=== PATIENT | male | born 1985 | race Caucasian/White ===

== ENCOUNTER 2021-02-25 19:32 | Observation (INO) | payer BC, SELFPAY ==
--- NOTE | ~2021-02-25 | XR_ITS ---
EXAMINATION: XR chest 2V DATE: 02/25/2021 20:10 INDICATION: Shortness of breath. Left-sided chest pain. TECHNIQUE: PA and lateral views of the chest were obtained. COMPARISON: None FINDINGS: The lungs are clear with no focal airspace opacities, pulmonary edema, pleural effusion or pneumothor ax. The cardiomediastinal silhouette is normal. Visualized bones and soft tissues are unremarkable. IMPRESSION: 1. No acute cardiopulmonary disease. Reviewed, dictated and finalized at location A.
--- NOTE | 2021-02-25 19:34 | ECG_ITS ---
Measurements Intervals [place] Rate: 70 P: 45 ME: 146 QRS: 36 QRSD: 101 T: 29 QT: 382 QTc: 414 Interpretive Statements SINUS RHYTHM INCOMPLETE RIGHT BUNDLE BRANCH BLOCK BASELINE ARTIFACT- I, III, AVR, AVL, AVF BORDERLINE ECG Electronically Signed On 02-26-2021 7:10:20 CDT by Boyd Graff D.O.
[2021-02-25 19:36] VITALS: BP 152/89; PULSE 75; RESP 16; TEMP 36.5; O2SAT 100
[2021-02-25 19:54] LABS: Basophils Absolute Auto 0.1 K/mm3 (0.0-0.1); Basophils Percent Auto 0.9 % (0.2-1.2); Eosinophils Absolute Auto 0.1 K/mm3 (0-0.3); Eosinophils Percent Auto 1.5 % (0-4.4); Hematocrit 44.4 % (42.0-52.0); Hemoglobin 15.6 g/dL (14.0-18.0); Immature Granulocyte Absolute 0.01 K/mm3 (0.00-0.031); Immature Granulocyte Percent A 0.2 % (0-0.5); Lymphocytes Absolute Auto 2.34 K/mm3 (0.9-3.2); Lymphocytes Percent Auto 42.8 % (18.3-44.2); Mean Corpuscular HGB Conc 35.1 g/dl (32-36); Mean Corpuscular Hemoglobin 30.2 pg (26-34); Mean Corpuscular Volume 85.9 fl (80-100); Mean Platelet Volume 9.2 fl (7.4-10.4); Monocytes Absolute Auto 0.2 K/mm3 (0.1-0.6); Monocytes Percent Auto 3.7 % (2.6-8.5); Neutrophils Absolute Auto 2.8 K/mm3 (1.3-6.7); Neutrophils Percent Auto 50.9 % (45.5-73.1); Platelet Count Result 344 k/mm3 (150-375); Red Blood Count 5.17 M/mm3 (4.6-6.20); Red Cell Distribution Width 11.8 % (11.5-14.5); White Blood Count 5.5 K/mm3 (4.5-10.0)
[2021-02-25 20:02] LABS: Anion Gap 8 mmol/L (8-16); Blood Urea Nitrogen 14 mg/dL (9-20); Calcium 9.8 mg/dL (8.4-10.2); Carbon Dioxide 30 mmol/L (22-30); Chloride 103 mmol/L (98-107); Estimated CRCL calculation 120 ml/min; Estimated Glomerular Filt Rate > 60; Glucose 127 mg/dL (75-110); Potassium 4.1 mmol/L (3.4-5.0); Sodium 141 mmol/L (137-145)
[2021-02-25 20:04] LABS: INR 0.9; Prothrombin Time 12.6 Seconds (11.1-14.7)
[2021-02-25 20:06] LABS: Partial Thromboplastin Time 26.1 SECONDS (22.3-36.8)
[2021-02-25 20:14] LABS: Troponin I < 0.012 ng/mL (0.000-0.034)
[2021-02-25 23:11] VITALS: BP 156/109; PULSE 72; RESP 13; O2SAT 100
--- NOTE | 2021-02-25 23:28 | ED.CHESTPAIN ---
HPI - Chest Pain General Chief Complaint: Chest Pain Stated Complaint: chest pain -shortness of breath Time Seen by Provider: 02/25/21 23:26 Source: patient Mode of arrival: ambulatory Limitations: no limitations History of Present Illness HPI narrative: Patient is a 35-year-old male complaining of chest pain, midsternal, tightness, 6 out of 10, nonradiating accompanied by shortness of breath that started last night. Patient denies any abdominal pain, nausea, vomiting, diaphoresis, fever or chills. Patient states that he has a history of hypertension and aortic stenosis. Related Data Allergies Allergy/AdvReac Type Severity Reaction Status Date / Time Bumble Bee Allergy Intermediate Other Uncoded 02/25/21 19:33 Review of Systems Review of Systems: All systems reviewed & are unremarkable except as noted in HPI and below Constitutional: Constitutional: Denies body ache(s), Denies chills, Denies excessive sweating, Denies fatigue, Denies fever(s), Denies headache(s), Denies lethargy, Denies malaise, Denies weakness and Denies weight loss Eyes: Eyes: Denies blurry vision, Denies change in vision and Denies loss of vision ENT: Denies dizziness, Denies ear discharge, Denies headache(s), Denies lip swelling, Denies epistaxis, Denies nasal congestion, Denies neck pain, Denies throat swelling and Denies tongue swelling Cardiovascular: Cardiovascular: Denies diaphoresis, Denies rapid heart rate, Denies edema, Denies irregular heart rhythm, Denies lightheadedness, Denies palpitations, Denies dyspnea and Denies dyspnea on exertion Respiratory: Respiratory: Denies chest congestion, Denies cough, Denies hemoptysis, Denies dyspnea and Denies dyspnea on exertion Gastrointestinal: Gastrointestinal: Denies abdominal pain, Denies melena, Denies hematochezia, Denies diarrhea, Denies nausea, Denies vomiting and Denies hematemesis Musculoskeletal: Musculoskeletal: Denies abnormal gait, Denies deformity, Denies joint swelling, Denies limited range of motion, Denies neck pain and Denies numbness Neurologic: Denies Abnormal speech present, Denies abnormal gait, Denies confusion, Denies dizziness, Denies headache(s), Denies focal weakness, Denies loss of vision, Denies numbness, Denies Other visual disturbances, Denies Sensory deficit (Neuro) and Denies weakness Psychiatric: Psychiatric: Denies confusion, Denies depression, Denies auditory hallucinations, Denies homicidal ideation and Denies suicidal ideation Endocrine: Endocrine: Denies cold intolerance, Denies excessive sweating, Denies fatigue, Denies heat intolerance and Denies palpitations Hematologic/Lymphatic: Hematologic/Lymphatic: Denies easy bleeding and Denies easy bruising Allergic/Immunologic: Allergic/Immunologic: Denies lip swelling, Denies throat swelling and Denies tongue swelling PMFSH Comments Past medical history: Hypertension, aortic stenosis Family history: Negative for coronary disease or [place] Social history: Non-smoker no EtOH or drug use. Course Vital Signs Vital signs: Vital Signs Temperature 36.5 C 02/25/21 19:36 Pulse Rate 75 02/25/21 19:36 Respiratory Rate 16 02/25/21 19:36 Blood Pressure 152/89 H 02/25/21 19:36 Pulse Oximetry 100 02/25/21 19:36 Temperature 36.5 C 02/25/21 19:36 Pulse Rate 55 L 02/26/21 00:44 Respiratory Rate 13 02/26/21 00:44 Blood Pressure 145/108 H 02/26/21 00:44 Pulse Oximetry 100 02/26/21 00:44 MDM - Chest Pain Differential Diagnosis Differential diagnosis: Likely stable angina, atypical chest pain, costochondritis and chest pain Lab Data Attestation: I reviewed the patient's lab results. Result diagrams: 02/25/21 19:45 02/25/21 19:45 Labs: Lab Results 02/25/21 02/25/21 02/25/21 Range/Units 19:45 19:45 19:45 WBC 5.5 (4.5-10.0) K/mm3 RBC 5.17 (4.6-6.20) M/mm3 Hgb 15.6 (14.0-18.0) g/dL Hct 44.4 (42.0-52.0) % MCV 85.9 (80-100) fl MCH 30.2 (26-34) p
[2021-02-26] VITALS (11 sets, daily range): BP systolic 119–145; BP diastolic 76–108; PULSE 55–78; RESP 13–20; TEMP 36.3–36.6; O2SAT 96–100; BMI 33.6
[2021-02-26 00:05] LABS: Troponin I < 0.012 ng/mL (0.000-0.034)
[2021-02-26] MEDS: ASPIRIN 81 MG CHEWABLE TABLET 324 MG PO (00:24)
[2021-02-26] MEDS: NITROGLYCERIN SL 0.4 MG TABLET SUBLINGUAL (00:58)
--- NOTE | 2021-02-26 00:58 | PC.NURSE ---
Gave one Nitro 0.4 tablet per ERP order for chest tightness. Pt states tightness relieved after 1 tablet.
[2021-02-26 02:55] LABS: Troponin I < 0.012 ng/mL (0.000-0.034)
--- NOTE | 2021-02-26 09:03 | PM.IMHP ---
H&P: HPI History of Present Illness Date/Time: 02/26/21 09:03 35 y/o male with h/o HTN, ?valve disease and obesity who presented with chest pain He reports chest pain started Tuesday night,felt like heaviness and squeezing. pain persisted through Tuesday and he noticed more when he leans forward while at his desk at work. His eventually convince him to seek medical attention. He admits to occasional dyspnea long with chest pain. Denies nausea or diaphoresis but feels hot flush sensation in the face. He feels better this morning and chest pain has resolved. His EKG shows normal sinus rhythm with no ischemic changes. His troponin is negative X3 He was seen by cardiology as a kid for a murmur and was seen last about 5 years ago. At that time he recall being told that he may have aortic stenosis although he was reassured from this condition never smoker Grandfather had PR at relatively young age. Father and mother alive with no heart disease Chief Complaint: chest pain Review of Systems Review of Systems: All systems reviewed & are unremarkable except as noted in HPI and below Constitutional: Constitutional: Denies fatigue and Denies headache(s) Eyes: Eyes: Denies blurry vision ENT: Reports Normal hearing present and Denies headache(s) Cardiovascular: Cardiovascular: Denies chest pain, Denies diaphoresis, Denies pedal edema, Denies leg edema, Denies lightheadedness, Denies palpitations and Denies dyspnea Respiratory: Respiratory: Denies cough and Denies dyspnea Gastrointestinal: Gastrointestinal: Denies abdominal pain Musculoskeletal: Musculoskeletal: Denies back pain Neurologic: Reports Normal hearing present and Denies headache(s) Psychiatric: Psychiatric: Denies anxiety Endocrine: Endocrine: Denies fatigue and Denies palpitations [facility] Family History Family History (Updated 02/26/21 @ 02:46 by Adina Reno RN) Sibling Hypertension Father Elevated cholesterol Social History Social History Smoking status: Never smoker Alcohol intake: current Substance use type: does not use Spiritual care concerns: No Meds Home Medications and Allergies Home Medications Medication Instructions Recorded Confirmed Type lisinopril 10 mg PO DAILY 02/26/21 02/26/21 History Allergies Allergy/AdvReac Type Severity Reaction Status Date / Time Bumble Bee Allergy Intermediate Other Uncoded 02/25/21 19:33 Vital Signs Vital Signs - 24 hr 02/25/21 19:36 02/25/21 23:11 02/26/21 00:44 Temperature 36.5 C Pulse Rate 75 72 55 L Respiratory Rate 16 13 13 Blood Pressure 152/89 H 156/109 H 145/108 H Pulse Oximetry 100 100 100 02/26/21 01:25 02/26/21 01:40 02/26/21 02:05 Temperature 36.5 C Pulse Rate 59 L 58 L 62 Respiratory Rate 13 17 20 Blood Pressure 145/98 H 134/78 119/88 Pulse Oximetry 100 98 99 02/26/21 02:40 02/26/21 04:00 02/26/21 08:00 Temperature 36.3 C L Pulse Rate 68 56 L 68 Respiratory Rate 14 Blood Pressure 133/76 Pulse Oximetry 96 02/26/21 08:59 Temperature Pulse Rate 78 Respiratory Rate Blood Pressure Pulse Oximetry Exam Const: General: no acute distress Eyes: Sclera: sclerae normal Neck: Neck: no JVD Carotids: no bruits Resp: Effort & Inspection: normal respiratory effort Auscultation: clear to auscultation bilaterally Cardio: Rate: regular rate and not tachycardic Rhythm: regular rhythm Heart sounds: no gallops, no murmurs and no rubs GI: GI Palp: Yes Soft to palpation and No Tenderness to palpation present (GI) Skin: General skin exam: normal color Neuro: Cranial nerves: Yes Normal hearing present Speech: normal speech Extrem: General: normal to inspection and no edema Psych: Affect: normal affect H&P: Results Labs Labs: Short CBC 02/25/21 Range/Units 19:45 WBC 5.5 (4.5-10.0) K/mm3 Hgb 15.6 (14.0-18.0) g/dL Hct 44.4 (42.0-52.0) % Plt Count 344 (150-375) k/mm3 BMP
--- NOTE | 2021-02-26 09:12 | ECHO_ITS ---
Patient Info Name: Andrea Durham Age: 35 years : 1985 Gender: Male Ht: 72 in Wt: 248 lbs BSA: 2.43 m2 HR: 64 bpm BP: 133 / 76 mmHg Technical Quality: Good Exam Date: 02/26/2021 11:09 AM Exam Location: [facility] Patient Status: Inpatient Admit Date: 02/26/2021 Staff Ordering Physician: Caty Baig MD (rosana/arsalan) Clerical Clerk: Gricel Paredes RDCS Attending Provider: Caty Baig MD (rosana/linh) Exam Type: CA echo doppler color flow Study Info Indications R07.9 - Chest pain, unspecified Complete two-dimensional, color flow and Doppler transthoracic echocardiogram is performed. Summary 1. Complete two-dimensional, color flow and Doppler transthoracic echocardiogram is performed. 2. Left ventricular chamber dimension is normal. 3. Left ventricular systolic function is normal, estimated at 65-70%. 4. There is mild discrete upper septal thickening with minimal increase in LVOT velocity LVOT velocity 1.8 m/s, mean gradient 9. No significant change in LVOT velocity/gradient with valsalva maneuver. 5. The aortic valve is trileaflet. 6. There is no aortic valve stenosis. 7. The mitral valve has normal leaflets. 8. There is no mitral valve regurgitation. 9. There is no tricuspid valve regurgitation. 10. Normal inferior vena cava with >50% collapse upon inspiration. 11. There is no pericardial effusion. Left Ventricle Left ventricular chamber dimension is normal. Left ventricular systolic function is normal, estimated at 65-70%. There is mild discrete upper septal thickening with minimal increase in LVOT velocity LVOT velocity 1.8 m/s, mean gradient 9. No significant change in LVOT velocity/gradient with valsalva maneuver. Left ventricular septal wall motion is normal. The left ventricular diastolic function is normal. Right Ventricle Right ventricular chamber dimension is normal. Right ventricular systolic function is normal. Left Atria Left atrial chamber dimension is normal. Right Atria Right atrial chamber dimension is normal. Aortic Valve The aortic valve is trileaflet. There is no aortic valve sclerosis. There is no aortic valve stenosis. There is no aortic valve regurgitation. Pulmonic Valve The pulmonic valve is normal. There is no pulmonic valve stenosis. There is no pulmonic regurgitation. Mitral Valve The mitral valve has normal leaflets. There is no mitral valve stenosis. There is no mitral valve regurgitation. Tricuspid Valve The tricuspid valve leaflets are normal. There is no significant tricuspid valve stenosis. There is no tricuspid valve regurgitation. No pulmonary hypertension, estimated pulmonary arterial systolic pressure is 24 mmHg. Pericardium/Pleural The pericardium appears normal. There is no pericardial effusion. Inferior Vena Cava Normal inferior vena cava with >50% collapse upon inspiration. Aorta The aortic root size at the sinus of Valsalva is normal. The prox ascending aorta size is normal. Left Ventricular Outflow Tract Name Value Normal LVOT 2D LVOT Diameter 2.0 cm LVOT Doppler LVOT Peak Gradient
[2021-02-26] MEDS: lisinopriL 10 MG TABLET PO (10:11)
--- NOTE | 2021-02-26 12:25 | PM.DS ---
DS: Admitting Diagnosis Admitting Diagnosis Admitting Diagnosis: Chest pain DS: Discharge Diagnosis Discharge Diagnosis (1) Chest pain: Qualifiers: Chest pain type: unspecified Qualified Code(s): R07.9 - Chest pain, unspecified Code(s): R07.9 - Chest pain, unspecified Status: Acute Assessment and Plan: 35 y/o male with h/o HTN and possible valvular disease who presents with chest pain Pain is positional and atypical for angina. He ruled out with EKG and troponin 2D echocardiogram (2) Heart valve disease: Code(s): I38 - Endocarditis, valve unspecified Status: Acute Assessment and Plan: per patient, 2D echo with no significant valvular disease (3) Hypertension: Qualifiers: Hypertension type: essential hypertension Qualified Code(s): I10 - Essential (primary) hypertension Code(s): I10 - Essential (primary) hypertension Status: Acute Assessment and Plan: Resume Lisinopril DS: Summary Hospital Course Hospital Course: Refer to HPI Time Spent with Patient Time attestation: Total time spent providing and/or coordinating discharge services: Exam Const: General: no acute distress Eyes: Sclera: sclerae normal Neck: Neck: no JVD Carotids: no bruits Resp: Effort & Inspection: normal respiratory effort Auscultation: clear to auscultation bilaterally Cardio: Rate: regular rate and not tachycardic Rhythm: regular rhythm Heart sounds: no gallops, no murmurs and no rubs Skin: General skin exam: normal color Neuro: Cranial nerves: Yes Normal hearing present Speech: normal speech Extrem: General: normal to inspection and no edema Psych: Affect: normal affect DS: Data Data Completed and Pending Labs on day of discharge: Labs from last 24 hours 02/26/21 02/25/21 02/25/21 02:14 23:36 19:45 WBC RBC Hgb Hct MCV MCH MCHC RDW Plt Count MPV Immature Gran % (Auto) Neut % (Auto) Lymph % (Auto) Frontier % (Auto) Eos % (Auto) Baso % (Auto) Lymph # (Auto) Frontier # (Auto) Eos # (Auto) Baso # (Auto) Abs Immat Gran (auto) Absolute Neuts (auto) Absolute Nucleated RBC Nucleated RBC % PT INR APTT Sodium 141 Potassium 4.1 Chloride 103 Carbon Dioxide 30 Anion Gap 8 BUN 14 Creatinine 1.00 Estim Creat Clear Calc 120 Estimated GFR > 60 Glucose 127 H Calcium 9.8 Troponin I < 0.012 < 0.012 < 0.012 02/25/21 02/25/21 19:45 19:45 WBC 5.5 RBC 5.17 Hgb 15.6 Hct 44.4 MCV 85.9 MCH 30.2 MCHC 35.1 RDW 11.8 Plt Count 344 MPV 9.2 Immature Gran % (Auto) 0.2 Neut % (Auto) 50.9 Lymph % (Auto) 42.8 Frontier % (Auto) 3.7 Eos % (Auto) 1.5 Baso % (Auto) 0.9 Lymph # (Auto) 2.34 Frontier # (Auto) 0.2 Eos # (Auto) 0.1 Baso # (Auto) 0.1 Abs Immat Gran (auto) 0.01 Absolute Neuts (auto) 2.8 Absolute Nucleated RBC 0.0 Nucleated RBC % 0.0 PT 12.6 INR 0.9 APTT 26.1 Sodium Potassium Chloride Carbon Dioxide Anion Gap BUN Creatinine Estim Creat Clear Calc Estimated GFR Glucose Calcium Troponin I Discharge Plan Discharge Attending physician on discharge: Caty Baig Discharging Clinician: Caty Baig Patient Disposition: Home, Self-Care Activity: as tolerated Diet: as tolerated Patient Instructions: Antibiotic Form, Chest Pain (DC), Chronic Hypertension (DC) Stand Alone Forms: General Discharge Information Follow-up/Referrals: Caty Baig MD [Physician] - (in 1-2 weeks ) Discharge Medications: Continued lisinopril 10 mg tablet 10 mg PO DAILY RF: 0 Date of admission: 02/26/21 00:50 Primary Care Provider: Krzysztof,Geovany Admitting Provider: Caty Baig Attending physician on admission: Caty Baig Condition: Improved Quality VTE Prophylaxis VTE prophylaxis: pharm
== END 2021-02-26 13:05 | disposition home or self-care (01) ==
LOC: ANHED 02-26 00:54 → ANHIMU 02-26 01:21 → ANH2MED 02-26 01:50 → ANHIMU 02-26 01:51
PROVIDERS: Emergency Medicine; Admitting Provider Internal Medicine; Emergency Provider Emergency Medicine; PCP Internal Medicine; Visit Provider Internal Medicine
DX: R07.9 Chest pain, unspecified (principal); I38 Endocarditis, valve unspecified; I10 Essential (primary) hypertension; R06.02 Shortness of breath
CPT/HCPCS: 36415; 71046; 80048; 84484; 85025; 85610; 85730; 93005; 93306; 99285; A9270; G0378

== ENCOUNTER 2021-07-24 01:07 | Day surgery (SDC) | payer BC, SELFPAY ==
[2021-06-29 14:02] VITALS: BMI 35.2
[2021-07-10 14:33] VITALS: BMI 35.2
[2021-07-24 11:24] VITALS: BP 158/109; PULSE 85; RESP 16; TEMP 36.2; O2SAT 100; BMI 35.6
[2021-07-24] MEDS: LACTATED RINGERS 1,000 ML 150 ML IV CONT (11:32)
--- NOTE | 2021-07-24 11:32 | P.CONGI_ITS ---
Assessment and Plan Assessment and plan (1) LUQ abdominal pain: Code(s): R10.12 - Left upper quadrant pain Status: Acute Assessment and Plan: Left upper quadrant abdominal pain of uncertain etiology for this reason EGD will be performed to assess more thoroughly. GI Consult Note Consult date/time: 07/24/21 11:32 HPI: Andrea Durham is a 35 year old male Presents for EGD. Patient removed reports several month history of left upper quadrant abdominal pain. He reports no specific trauma that precipitated this. He states it does not change with eating. It does intensify with sitting in a hunched over position such as driving a car. He denies any bleeding or weight loss. His appetite has remained stable. He returned presents today for EGD to assess more thoroughly. Further recommendations will be given after endoscopy. Patient reports the abdominal pain is lessened over recent weeks. His much more tolerable now than it had been. Review of Systems Review of Systems: All systems reviewed & are unremarkable except as noted in HPI and below PMFSH Past Medical History Medical History (Updated 07/24/21 @ 11:33 by Valerio Hankins MD) Aortic stenosis Hypertension Family History Family History (Updated 02/26/21 @ 02:46 by Adina Reno RN) Sibling Hypertension Father Elevated cholesterol Social History Social History Smoking status: Never smoker Alcohol intake: current Drinks per week: 8 Substance use type: does not use Living arrangements: with family Spiritual care concerns: No Meds Home Medications and Allergies Home Medications Medication Instructions Recorded Confirmed Type lisinopril 10 mg PO DAILY 02/26/21 06/29/21 History Allergies Allergy/AdvReac Type Severity Reaction Status Date / Time Bumble Bee Allergy Intermediate Other Uncoded 07/24/21 11:23 Vital Signs Vital Signs - 24 hr 07/24/21 11:24 Temperature 97.1 F L Pulse Rate 85 Respiratory Rate 16 Blood Pressure 158/109 H Pulse Oximetry 100 Exam Narrative: Physical exam reveals patient to be alert. Vital signs stable. HEENT exam is unremarkable. Patient is anicteric. Lungs are clear to auscultation and percussion. Heart is without murmur or extra sounds. Abdomen bowel sounds present soft no palpable tenderness evident. No masses noted. Ex tremities are without clubbing cyanosis or edema.
--- NOTE | 2021-07-24 12:10 | P.PNAN_ITS ---
Anes - Initial Pre Proc Eval Procedure: Operation Date: 07/24/21 13:30 Proposed Procedures p Esophagogastroduodenoscopy - Valerio Hankins MD Date/Time: 07/24/21 12:10 Surgeon: Valerio Hankins MD Pre Op Diagnosis: abdominal pain Patient Data Age: 35 Gender: M Height: 1.83 m Weight: 119.3 kg Last Vital Signs Temp 97.1 F L 07/24/21 11:24 Pulse 85 07/24/21 11:24 Resp 16 07/24/21 11:24 BP 158/109 H 07/24/21 11:24 Pulse Ox 100 07/24/21 11:24 Allergies Allergy/AdvReac Type Severity Reaction Status Date / Time Bumble Bee Allergy Intermediate Other Uncoded 07/24/21 11:23 Home Medications Medication Instructions Recorded Confirmed Type lisinopril 10 mg PO DAILY 02/26/21 06/29/21 History Patient hx anesthesia problems: none Family hx anesthesia problems: none Results Review: All pre-operative results and documents have been reviewed as part of the pre-operative evaluation. [facility] Past Medical History Medical History (Updated 07/24/21 @ 11:33 by Valerio Hankins MD) Aortic stenosis Hypertension Family History Family History (Updated 02/26/21 @ 02:46 by Adina Reno RN) Sibling Hypertension Father Elevated cholesterol Social History Social History Smoking status: Never smoker Alcohol intake: current Drinks per week: 8 Substance use type: does not use Living arrangements: with family Spiritual care concerns: No Anes - Eval Final PreProcedure Day of Procedure 07/24/21 12:10 Patient weight: obese Heart: regular rate and rhythm Lungs: clear to auscultation Airway: Mallampati scale class II Neurological: alert and oriented Last oral intake: >/= 8 hours ASA classification: III Emergent: no Anesthetic plan: proceed Anesthesia type and monitoring: general GIVS and standard monitoring Results Review: All pre-operative results and documents have been reviewed as part of the pre-operative evaluation. Informed Consent: The patient's anesthetic plan and its attendant risks and benefits were discussed with the patient/family/POA. Questions were solicited and answers provided to the satisfaction of the patient/family/POA.
[2021-07-24 12:22] VITALS: BP 123/80; PULSE 90; RESP 21; O2SAT 99
[2021-07-24 12:32] VITALS: BP 136/90; PULSE 75; RESP 21; O2SAT 97
[2021-07-24 12:42] VITALS: BP 138/95; PULSE 66; RESP 17; O2SAT 98
== END 2021-07-24 13:00 | disposition home or self-care (01) ==
PROVIDERS: PCP Internal Medicine; Visit Provider Internal Medicine Gastroenterology
PROC: 0DJ08ZZ Inspection of Upper Intestinal Tract, Via Natural or Artificial Opening Endoscopic (ICD-10-PCS; CPT 43235; principal; 2021-07-24 13:30)
DX: R10.12 Left upper quadrant pain (principal); I10 Essential (primary) hypertension; I35.0 Nonrheumatic aortic (valve) stenosis; E66.9 Obesity, unspecified; Z68.35 Body mass index [BMI] 35.0-35.9, adult
CPT/HCPCS: 43239; 87081; J2001; J2704; J7120

== ENCOUNTER 2022-09-07 10:14 | Outpatient (CLI) | payer BC, SELFPAY ==
[2022-09-07 10:31] LABS: Mean Corpuscular HGB Conc 35.7 g/dl (32-36); Mean Corpuscular Hemoglobin 29.6 pg (26-34); Platelet Count Result 378 k/mm3 (150-375); Red Blood Count 5.06 M/mm3 (4.6-6.20); Red Cell Distribution Width 12.2 % (11.5-14.5)
[2022-09-07 10:43] LABS: Alanine Aminotransferase 48 U/L (6-50); Alkaline Phosphatase 54 U/L (38-126); Amylase 69 U/L (30-110); Anion Gap 11 mmol/L (8-16); Aspartate Amino Transferase 46 U/L (17-59); Bilirubin,Total 0.8 mg/dL (0.2-1.3); Blood Urea Nitrogen 13 mg/dL (9-20); Calcium 9.4 mg/dL (8.4-10.2); Carbon Dioxide 25 mmol/L (22-30); Chloride 101 mmol/L (98-107); Estimated Glomerular Filt Rate > 60; Glucose 99 mg/dL (65-110); Lipase 87 U/L (23-300); Potassium 3.9 mmol/L (3.4-5.0); Sodium 137 mmol/L (137-145)
== END 2022-09-07 10:15 | disposition home or self-care (01) ==
LOC: ANHLAB 10:15
PROVIDERS: PCP Internal Medicine; Visit Provider Nurse Practitioner
DX: R10.12 Left upper quadrant pain (principal)
CPT/HCPCS: 36415; 80053; 82150; 83690; 85027

== ENCOUNTER 2022-09-20 07:36 | Outpatient (CLI) | payer BC, SELFPAY ==
--- NOTE | ~2022-09-20 | NM_ITS ---
EXAMINATION: NM hepatobiliary wo pharm DATE: 09/20/2022 10:24 DERMATOLOGY PHYSICIAN INDICATION: Intermittent epigastric pain. Left upper quadrant pain. COMPARISON: None. TECHNIQUE: 5 mCi Tc-99m mebrofenin (Choletec) was administered intravenously. Scintigraphic images o f the abdomen were obtained for one hour. At the 1 hour time point, the patient drank 8 oz Ensure, an d imaging was continued for 60 minutes. Gallbladder ejection fraction was calculated by the technolog ist. FINDINGS: There is normal clearance of radiotracer from the blood pool. There is homogeneous tracer u ptake by the liver. Activity progresses to the bowel and gallbladder. The gallbladder ejection fract ion is 73%. Note that with this technique, normal GBEF >= 33%. IMPRESSION: 1. Normal hepatobiliary scan. Reviewed, dictated and finalized at location B. ATOLOGY PHYSICIAN
== END 2022-09-20 07:37 | disposition home or self-care (01) ==
PROVIDERS: PCP Internal Medicine; Visit Provider Nurse Practitioner
DX: R10.12 Left upper quadrant pain (principal)
CPT/HCPCS: 78226; A9537

== ENCOUNTER 2022-10-08 01:56 | Day surgery (SDC) | payer BC, SELFPAY ==
[2022-09-29 14:45] VITALS: BMI 35.2
[2022-10-08 12:02] VITALS: BP 115/113; PULSE 82; RESP 20; TEMP 36.5; O2SAT 98
[2022-10-08] MEDS: LACTATED RINGERS 1,000 ML 150 ML IV CONT (12:11)
--- NOTE | 2022-10-08 12:23 | PM.HPGS ---
History of Present Illness History of Present Illness Consent: Risks, benefits, and alternatives have been discussed and questions answered. Patient agrees to proceed with procedure. Chief complaint: hemorrhoid Narrative: Andrea Durham is a 36 year old male Presents for flexible sigmoidoscopy. Patient reports that many years ago he was told he had a growth at the rectal area. States he occasionally feels a little tag when wiping. Recent evaluation by CUSTOMER RELATIONS ADVISOR in the office suggested hemorrhoids. A flexible sigmoidoscopy was requested. Patient denies any pain. He states quite sometime ago he may had a small amount of bright red blood per rectum but none recently. Additionally continues to have brief episodes of left upper quadrant pain. GI workup to date has been negative. Review of Systems Review of Systems: Review of systems noncontributory. [facility] Past Medical History Medical History (Updated 10/08/22 @ 12:25 by Valerio Hankins MD) Aortic stenosis Epigastric abdominal pain Fatty liver Hypertension Obesity (BMI 30-39.9) Family History Family History Sibling Hypertension Father Elevated cholesterol Social History Social History Smoking status: Never smoker Alcohol intake: current Drinks per week: 6 Substance use: never Substance use type: does not use Living arrangements: with family Spiritual care concerns: No Meds Home Medications and Allergies Home Medications Medication Instructions Recorded Confirmed Type lisinopril 10 mg tablet 10 mg PO DAILY 02/26/21 09/29/22 History Allergies Allergy/AdvReac Type Severity Reaction Status Date / Time Bumble Bee Allergy Intermediate Swelling Uncoded 10/08/22 12:01 of Lip/Tongue/Throat Vital Signs Vital Signs - 24 hr 10/08/22 12:02 Temperature 97.7 F Pulse Rate 82 Respiratory Rate 20 Blood Pressure 115/113 H Pulse Oximetry 98 Oxygen Delivery Room Air Exam Narrative: Physical exam reveals patient be alert. Vital signs stable. HEENT exam unremarkable. Patient is anicteric. Lungs are clear. Heart without murmur. Abdomen bowel sounds present soft nontender with no organomegaly. Digital rectal exam with no obvious external lesions. Assessment and Plan Assessment and plan (1) Hemorrhoid: Code(s): K64.9 - Unspecified hemorrhoids Status: Acute Assessment and Plan: patient found to have a hemorrhoid on recent exam. Flex sig was advised because of patient's concerns. Further recommendations may be given after endoscopy. High-fiber diet fiber supplements as necessary are encouraged. May benefit from preparation H intermittently if it becomes uncomfortable. Currently has no complaints of pain nor bleeding. (2) LUQ abdominal pain: Code(s): R10.12 - Left upper quadrant pain Status: Acute Assessment and Plan: Patient has had intermittent brief bouts of left upper quadrant pain. GI workup to date has been negative. Because of the brevity of this pain suspected may be spastic in nature. He can continue to follow-up with CUSTOMER RELATIONS ADVISOR in the office as scheduled.
--- NOTE | 2022-10-08 12:34 | WPDANESEPPF ---
Anes - Initial Pre Proc Eval Procedure: Operation Date: 10/08/22 13:15 Proposed Procedures p Flexible Sigmoidoscopy - Valerio Hankins MD Date/Time: 10/08/22 12:34 Surgeon: Valerio Hankins MD Pre Op Diagnosis: hemorrhoid Patient Data Age: 36 Gender: M Height: 1.83 m Weight: 118.3 kg Last Vital Signs Temp 97.7 F 10/08/22 12:02 Pulse 82 10/08/22 12:02 Resp 20 10/08/22 12:02 BP 115/113 H 10/08/22 12:02 Pulse Ox 98 10/08/22 12:02 O2 Del Method Room Air 10/08/22 12:02 Allergies Allergy/AdvReac Type Severity Reaction Status Date / Time Bumble Bee Allergy Intermediate Swelling Uncoded 10/08/22 12:01 of Lip/Tongue/Throat Home Medications Medication Instructions Recorded Confirmed Type lisinopril 10 mg tablet 10 mg PO DAILY 02/26/21 09/29/22 History Patient hx anesthesia problems: none Family hx anesthesia problems: none Results Review: All pre-operative results and documents have been reviewed as part of the pre-operative evaluation. [facility] Past Medical History Medical History (Updated 10/08/22 @ 12:25 by Valerio Hankins MD) Aortic stenosis Epigastric abdominal pain Fatty liver Hypertension Obesity (BMI 30-39.9) Family History Family History Sibling Hypertension Father Elevated cholesterol Social History Social History Smoking status: Never smoker Alcohol intake: current Drinks per week: 6 Substance use: never Substance use type: does not use Living arrangements: with family Spiritual care concerns: No Anes - Eval Final PreProcedure Day of Procedure 10/08/22 12:34 Patient weight: normal Heart: regular rate and rhythm Lungs: clear to auscultation Airway: Mallampati scale class II Neurological: alert and oriented Last oral intake: >/= 8 hours ASA classification: III Emergent: no Anesthetic plan: proceed Anesthesia type and monitoring: general GIVS and standard monitoring Results Review: All pre-operative results and documents have been reviewed as part of the pre-operative evaluation. Informed Consent: The patient's anesthetic plan and its attendant risks and benefits were discussed with the patient/family/POA. Questions were solicited and answers provided to the satisfaction of the patient/family/POA.
[2022-10-08 13:18] VITALS: BP 133/86; PULSE 74; RESP 20; O2SAT 97
[2022-10-08 13:28] VITALS: BP 144/94; PULSE 68; RESP 20; O2SAT 96
[2022-10-08 13:38] VITALS: BP 143/99; PULSE 69; RESP 22; O2SAT 99
== END 2022-10-08 13:48 | disposition home or self-care (01) ==
PROVIDERS: PCP Internal Medicine; Visit Provider Internal Medicine Gastroenterology
PROC: 0DJD8ZZ Inspection of Lower Intestinal Tract, Via Natural or Artificial Opening Endoscopic (ICD-10-PCS; CPT 45330; principal; 2022-10-08 13:15)
DX: K64.8 Other hemorrhoids (principal); R10.12 Left upper quadrant pain; I10 Essential (primary) hypertension
CPT/HCPCS: 45330; J2704; J7120

== ENCOUNTER 2023-05-06 15:27 | Emergency (ER) | payer BC, SELFPAY ==
--- NOTE | ~2023-05-06 | XR_ITS ---
EXAMINATION: XR tibia fibula RT 2V DATE: 05/06/2023 17:04 INDICATION: Right lower leg foreign body. TECHNIQUE: 2 views of right tibia and fibula on 4 radiographs were obtained. COMPARISON: None. FINDINGS: Bone alignment is normal. No fracture. 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 Joint sp aces are normal. No knee joint effusion. IMPRESSION: 1. No radiopaque foreign body. Reviewed, dictated and finalized at location A.
[2023-05-06 15:29] VITALS: BP 170/101; PULSE 73; RESP 18; TEMP 35.8; O2SAT 99
--- NOTE | 2023-05-06 17:02 | ED.GENADULT ---
HPI - General Adult General Chief complaint: Wound/Laceration Stated complaint: Lower leg lac Time Seen by Provider: 05/06/23 16:36 Source: patient Mode of arrival: ambulatory Limitations: no limitations History of Present Illness HPI narrative: This is a 37-year-old male who presents to the ED with chief complaint of a puncture wound injury that occurred a few hours prior to arrival. Patient states that he was out in his yard mowing the grass when he went over an electrical wire. He states the wire popped up and hit him in the right calf. He reports immediate dark red blood bleeding which concerned him. He reports a little bit of swelling but overall is pain-free. Denies any further site of pain or injury. Related Data Home Medications Medication Instructions Recorded Confirmed lisinopril 10 mg tablet 10 mg PO DAILY 02/26/21 09/29/22 Allergies Allergy/AdvReac Type Severity Reaction Status Date / Time Bumble Bee Allergy Intermediate Swelling Uncoded 10/08/22 12:01 of Lip/Tongue/Throat PMFSH Past Medical History Medical History (Updated 05/06/23 @ 17:16 by John Kraft PA-C) Aortic stenosis Epigastric abdominal pain Fatty liver Hypertension Obesity (BMI 30-39.9) Family History Family History Sibling Hypertension Father Elevated cholesterol Social History Social History Smoking status: Never smoker Alcohol intake: current Drinks per week: 6 Substance use: never Substance use type: does not use Living arrangements: with family Spiritual care concerns: No Exam Narrative: GENERAL: Well-appearing, well-nourished, and in no acute distress. HEAD: Normocephalic, atraumatic. EYES: PERRLA and EOMI. ENT: Nares clear, no rhinorrhea or epistaxis. Mucous membranes moist. Oropharynx without tonsillar hypertrophy exudate or other lesions. NECK: Supple. No adenopathy or masses. CHEST: No respiratory distress. Clear to auscultation. No wheezes rales or rhonchi HEART: Regular rate and rhythm. No murmur heard. Normal peripheral pulses. ABDOMEN: Soft, nontender, nondistended, normal active bowel sounds. MSK: Normal range of motion. No edema. SKIN: Right calf with crusted over puncture wound lesion. No surrounding bruising. Mild swelling. Neurovascularly intact distally. NEURO: Alert and oriented x3. No focal deficits. PSYCH: Normal mood and affect. Course Vital Signs Vital signs: Vital Signs Temperature 96.5 F L 05/06/23 15:29 Pulse Rate 73 05/06/23 15:29 Respiratory Rate 18 05/06/23 15:29 Blood Pressure 170/101 H 05/06/23 15:29 Pulse Oximetry 99 05/06/23 15:29 Oxygen Delivery Room Air 05/06/23 15:29 Temperature 96.5 F L 05/06/23 15:29 Pulse Rate 73 05/06/23 15:29 Respiratory Rate 18 05/06/23 15:29 Blood Pressure 170/101 H 05/06/23 15:29 Pulse Oximetry 99 05/06/23 15:29 Oxygen Delivery Room Air 05/06/23 15:29 Medical Decision Making MDM Narrative Medical decision making narrative: This is a 37-year-old male who presents to the ED with chief complaint of a puncture wound to the right lower leg. this occurred while mowing the lawn today. Vitals are normal. Exam shows a very small crusted over wound site to the right lower leg. No active bleeding. No surrounding swelling or bruising. Overall exam is intact. X-rays do not reveal any foreign bodies or acute osseous findings. He will be discharged in stable condition. Prescription for Keflex given for prophylaxis. Return precautions given and supportive measures for home discussed. He is understanding and agreeable with plan for discharge and follow-up with PCP. Vital Signs Vital Signs: Vital Signs Temperature 96.5 F L 05/06/23 15:29 Pulse Rate 73 05/06/23 15:29 Respiratory Rate 18 05/06/23 15:29 Blood Pressure 170/101 H 05/06/23 15:29 Pu
== END 2023-05-06 17:43 | disposition home or self-care (01) ==
PROVIDERS: Emergency Provider Physician Assistant; PCP Internal Medicine
DX: S81.831A Puncture wound without foreign body, right lower leg, initial encounter (principal); I35.0 Nonrheumatic aortic (valve) stenosis; I10 Essential (primary) hypertension; E66.9 Obesity, unspecified; Z68.33 Body mass index [BMI] 33.0-33.9, adult; W20.8XXA Other cause of strike by thrown, projected or falling object, initial encounter
CPT/HCPCS: 73590; 99283

== ENCOUNTER 2023-12-05 17:08 | Emergency (ER) | payer BC, SELFPAY ==
--- NOTE | ~2023-12-05 | US_ITS ---
EXAMINATION: US scrotum doppler DATE: 12/05/2023 18:01 INDICATION: pain . TECHNIQUE: Grayscale and Doppler ultrasound images of the testes were obtained. COMPARISON: None. FINDINGS: The right testis measures 5.1 x 2.6 x 2.9 cm. The left testis measures 5.2 x 2.3 x 3.0 cm. No testicular mass. Mild left testicular hyperemia. The right epididymis is normal with normal vascul ar flow. The left epididymis is slightly enlarged, with normal vascular flow. There is no varicocele. Small bilateral hydroceles. IMPRESSION: Sonographic findings may represent mild left epididymoorchitis in the appropriate clinical context. Reviewed, dictated and finalized at location K. [facility] IMPRESSION: Sonographic findings may represent mild left epididymoorchitis in the appropria te clinical context.
[2023-12-05 17:20] VITALS: BP 165/89; PULSE 91; RESP 16; TEMP 36.6; O2SAT 100
--- NOTE | 2023-12-05 17:29 | ED.GENADULT ---
HPI - General Adult General Chief complaint: Urogenital-Male <John Kraft PA-C - Last Filed: 12/05/23 17:31> Stated complaint: TESTICULAR PAIN <John Kraft PA-C - Last Filed: 12/05/23 17:31> Time Seen by Provider: 12/05/23 17:29 <John Kraft PA-C - Last Filed: 12/05/23 17:31> Focused HPI: This is a 38-year-old male with PMH aortic stenosis, HTN who presents to the ED with chief complaint of left testicular pain for the past 3 days. It is intermittent in nature. Reports it is tender to touch. Denies any swelling to the testicles. Denies penile pain or swelling. Denies drainage. Denies any urinary symptoms. Denies STD concerns. GENERAL: Well-appearing, well-nourished, and in no acute distress. HEAD: Normocephalic, atraumatic. CHEST: Clear to auscultation. No respiratory distress. HEART: Regular rate and rhythm. NEURO: Alert and oriented x3. Patient screened in triage and initial orders placed. Additional care and disposition to be based upon diagnostic testing and treatment. <John Kraft PA-C - Last Filed: 12/05/23 17:31> Source: patient <John Kraft PA-C - Last Filed: 12/05/23 17:31> Mode of arrival: ambulatory <John Kraft PA-C - Last Filed: 12/05/23 17:31> Limitations: no limitations <John Kraft PA-C - Last Filed: 12/05/23 17:31> History of Present Illness HPI narrative: 38-year-old with a history of hypertension here with complaints of left testicular pain for past few days. He denies any trauma. No history of fever or chills. Patient states that he had similar pain a year ago on the right side. <Jatin Corona MD - Last Filed: 12/05/23 19:12> Related Data Home medications: Home Medications Medication Instructions Recorded Confirmed lisinopril 10 mg tablet 10 mg PO DAILY 02/26/21 09/29/22 <John Kraft PA-C - Last Filed: 12/05/23 17:31> Allergies/adverse reactions: Allergies Allergy/AdvReac Type Severity Reaction Status Date / Time Bumble Bee Allergy Intermediate Swelling Uncoded 10/08/22 12:01 of Lip/Tongue/Throat <John Kraft PA-C - Last Filed: 12/05/23 17:31> Review of Systems Review of Systems: All systems reviewed & are unremarkable except as noted in HPI and below <Jatin Corona MD - Last Filed: 12/05/23 19:12> Constitutional: Constitutional: Reports no additional constitutional complaints <Jatin Corona MD - Last Filed: 12/05/23 19:12> Eyes: Eyes: Reports no additional eye complaints <Jatin Corona MD - Last Filed: 12/05/23 19:12> ENT: Reports system reviewed and no additional complaints, except as documented <Jatin Corona MD - Last Filed: 12/05/23 19:12> Cardiovascular: Cardiovascular: Reports no additional cardiovascular complaints <Jatin Corona MD - Last Filed: 12/05/23 19:12> Gastrointestinal: Gastrointestinal: Reports no additional gastrointestinal complaints <Jatin Corona MD - Last Filed: 12/05/23 19:12> Genitourinary: Genitourinary: Reports as per HPI <Jatin Corona MD - Last Filed: 12/05/23 19:12> Musculoskeletal: Musculoskeletal: Reports no additional musculoskeletal complaints <Jatin Corona MD - Last Filed: 12/05/23 19:12> Integumentary/Breasts: Skin/Breast: Reports system reviewed and no additional complaints, except as docu <Jatin Corona MD - Last Filed: 12/05/23 19:12> Neurologic: Reports system reviewed and no additional complaints, except as documented <Jatin Corona MD - Last Filed: 12/05/23 19:12> PMFSH Past Medical History Medical History: Medical History Aortic stenosis Epigastric abdominal pain Fatty liver Hypertension Obesity (BMI 30-39.9) <John Kraft PA-C - Last Filed: 12/05/23 17:31> Family History Family History: Family History Sibling Hypertension Father Elevated cholesterol <John A. Bran
[2023-12-05 17:41] LABS: Appearance Urine Clear (Clear); Bilirubin Urine Negative (Negative); Blood Urine Negative (Negative); Color Urine Yellow (Yellow); Glucose Urine UA Negative (Negative); Ketones Urine Negative (Negative); Leukocyte Esterase Ur Negative LEU/UL (Negative); Nitrate Urine Negative (Negative); Protein Urine Negative (Negative); Specific Grav Ur 1.004 (1.001-1.035); Urobilinogen Urine 0.2 mg/dL (<2.0); pH Urine 6.5 (5.0-9.0)
[2023-12-05 17:47] LABS: Add Urine Microscopic? NO
--- NOTE | 2023-12-05 19:11 | PC.NURSE ---
Assumed care of pt from FLACO Phillips at this time.
[2023-12-05 19:17] VITALS: BP 152/77; PULSE 84; RESP 17; O2SAT 100
== END 2023-12-05 19:19 | disposition home or self-care (01) ==
PROVIDERS: Emergency Medicine; Emergency Provider Family Medicine; PCP Internal Medicine
DX: N45.3 Epididymo-orchitis (principal); I35.0 Nonrheumatic aortic (valve) stenosis; I10 Essential (primary) hypertension; E66.9 Obesity, unspecified; Z68.33 Body mass index [BMI] 33.0-33.9, adult; K76.0 Fatty (change of) liver, not elsewhere classified
CPT/HCPCS: 76870; 81003; 93976; 99284